=== PATIENT | female | born 1995 ===

== ENCOUNTER 2021-04-16 11:36 | Outpatient (CLI) | payer OTHER ==
[2021-04-16 11:53] VITALS: BP 120/77
== END 2021-04-16 13:03 | disposition home or self-care (01) ==
LOC: TRG 11:36 → APU 11:38 → TRG 13:03
PROVIDERS: ATTEND Obstetrics & Gynecology
DX: Z34.93 Encounter for supervision of normal pregnancy, unspecified, third trimester (principal); Z3A.40 40 weeks gestation of pregnancy
CPT/HCPCS: 59025